=== PATIENT | male | born 1970 | race Caucasian/White ===

== ENCOUNTER 2016-09-26 07:39 | Day surgery (SDC) | payer BC ==
[~2016-09-26 07:39] MED LIST: LIDOCAINE W/ SODIUM BICARB 0.5 ML SYR ONE; Lactated Ringers 1,000 ML PRIMARY IV ONE; ceFAZolin Inj 2gm (Premix) 50 ML IV ONE
[2016-09-26] MEDS ORDERED: BUPIVACAINE 0.25% W/ EPI - 10 ML VIAL ONE (07:45)
[2016-09-26] MEDS ORDERED: DEXAMETHASONE PF 10 MG/1 ML VIAL ONE (07:46)
[2016-09-26] MEDS ORDERED: MEPIVACAINE HCL/PF 20 MG/1 ML IV ONE (07:46)
[2016-09-26] MEDS ORDERED: LIDOCAINE 2%/ EPI 1:200,000 - 20 ML VIAL ONE (07:46)
[2016-09-26] MEDS ORDERED: fentaNYL Inj 250 MCG/5 ML VIAL ONE (07:47)
[2016-09-26] MEDS ORDERED: MIDAZOLAM 5 MG/1 ML ONE (07:47)
--- NOTE | 2016-09-26 08:52 | CRNA.PROCE ---
Nerve Block Documentation - - Safety Measures: Time Out Taken, Site Verified - - Type of Nerve Block Used: Left Axillary Block (Primary anesthetic for Left Cubital tunnel release. Site verified and marked with myself, Magen Zhao RN, and pts present.) Position for Nerve Block: Supine Moniters Used During Block: EKG, SPO2, NIBP Oxygen Sumpplented: Yes Sedation Used - Enter Amount in Comment Field: Midazolam (mg): Yes (4 mg), Fentanyl (mcg): Yes (100 mcgs) Skin Prep Used: ChloroPrep (Twice) Draped: No Technique: Nerve Stimulator Nerve Block Needle Used: Oink 50 mm Stimulation Hz: 1 Stimulation Staring mA: 1.6 Stimulation Ending mA: 0.6 Local Anesthetic - Enter Amt in Comment Field: 2 % Xylocaine with Epinephrine 1: 200,000 (mL): Yes (20 ml in 3 ml increments), 2 % Mepivacaine (mL): Yes (40 ml in 3 ml increments) Additives to Nerve Blocks: Dexamethasone (mL): Yes (10)
[2016-09-26] MEDS ORDERED: Sodium Chloride 0.9% vial 10 ML ONE (09:13)
[2016-09-26] MEDS ORDERED: BUPivacaine Inj 0.25% PF - 10ml vial ONE (09:13)
[2016-09-26] MEDS ORDERED: BACITRACIN 50,000 UNIT VIAL IRRIG ONE (09:14)
[2016-09-26] MEDS ORDERED: MORPHINE SULFATE 2 MG/1 ML IVP PRN (11:13)
[2016-09-26] MEDS ORDERED: NORMAL SALINE 10 ML SYRINGE FLUSH IVP PRN (11:13)
[2016-09-26] MEDS ORDERED: ONDANSETRON 4 MG/2 ML VIAL IVP PRN (11:13)
[2016-09-26] MEDS ORDERED: HYDROcodone-APAP 7.5 MG-325 MG TABLET PO PRN (11:13)
[2016-09-26] MEDS ORDERED: Lactated Ringers 1,000 ML PRIMARY IV SCH (11:15)
[2016-09-26 12:55] VITALS: TEMP 97.5
[2016-09-26 13:08] VITALS: RESP 16
== END 2016-09-26 12:40 | disposition home or self-care (01) ==
LOC: SDSC 07:39
PROVIDERS: ATTEND Orthopaedic Surgery
DX: G56.22 Lesion of ulnar nerve, left upper limb (principal)
CPT/HCPCS: 64718; A4216; J0690; J2704; J3010; J0670; J1100; J2250; J7120

== ENCOUNTER → 2017-03-08 | Outpatient (CLI) | payer BC ==
[2017-03-09 14:34] LABS: BASOPHILS # (AUTO) 0.04 10*3/UL; BASOPHILS % (AUTO) 0.5 % (0-1); EOSINOPHILS # (AUTO) 0.05 10*3/UL; EOSINOPHILS % (AUTO) 0.6 % (0-8); HEMATOCRIT 40.5 % (42.0-52.0); HEMOGLOBIN 13.8 g/dL (14.0-18.0); LYMPHOCYTES # (AUTO) 2.97 10*3/uL; MEAN CORPUSCULAR HEMOGLOBIN 28.2 PG (27-31); MEAN CORPUSCULAR HGB CONC 34.1 g/dL (33-37); MEAN CORPUSCULAR VOLUME 82.8 FL (80-90); MEAN PLATELET VOLUME 10.9 FL (7.4-12.2); MONOCYTES # (AUTO) 0.45 10*3/UL (0.3-0.8); MONOCYTES % (AUTO) 5.2 % (5-15); NEUTROPHILS # (AUTO) 5.19 10*3/UL; NEUTROPHILS % (AUTO) 59.4 % (50-80); RED BLOOD COUNT 4.89 10^6/uL (4.70-6.10)
[2017-03-09 14:36] LABS: PLATELET MORPHOLOGY COMMENT NORMAL MORPHOLOGY (NORM); RBC MORPHOLOGY COMMENT NORMAL MORPHOLOGY (NORM); WBC MORPHOLOGY COMMENT NORMAL MORPHOLOGY (NORM)
[2017-03-09 14:43] LABS: BLOOD UREA NITROGEN 14 mg/dL (7-22); BUN/CREATININE RATIO 12.72 (6-20); CALCIUM 9.1 mg/dL (8.7-10.7); EST GLOMERULAR FILTRATION > 60 (>60 ml/min/1.73m(2)); SERUM ALBUMIN 4.1 g/dL (3.5-4.8)
== END ==
LOC: LAB 16:49
PROVIDERS: ATTEND Physician Assistant Medical
DX: M62.81 Muscle weakness (generalized) (principal); R53.83 Other fatigue; R42 Dizziness and giddiness; R11.0 Nausea; F17.220 Nicotine dependence, chewing tobacco, uncomplicated
CPT/HCPCS: 80053; 85025